=== PATIENT | male | born 1960 | race Caucasian/White ===

== ENCOUNTER 2024-08-07 10:16 | Day surgery (SDC) | payer BC ==
[~2024-08-07] VITALS: Ht 182.9 cm; Wt 134.0 kg
[2024-08-07] VITALS (11 sets, daily range): BP systolic 105–153; BP diastolic 32–101; PULSE 75–88; RESP 12–14; TEMP 98.2; O2SAT 92–99
[2024-08-07] MEDS ORDERED: FLO0.4C PO (11:12)
[2024-08-07] MEDS ORDERED: ATOR40TA72 PO (11:12)
[2024-08-07] MEDS ORDERED: CLOP75TA34 PO (11:12)
[2024-08-07] MEDS ORDERED: TRAZ-256 PO (11:12)
[2024-08-07] MEDS ORDERED: HYDR-3972 PO (11:12)
[2024-08-07] MEDS ORDERED: HYDR50TA4 PO (11:14)
[2024-08-07] MEDS ORDERED: BUSP15TA7 PO (11:14)
[2024-08-07] MEDS ORDERED: METO-384 PO (11:14)
[2024-08-07 11:16] LABS: BASOPHILS % (AUTO) 0.4 % (0-1); EOSINOPHILS # (AUTO) 0.1 X10'3 (0-0.9); LYMPHOCYTES # (AUTO) 2.5 X10'3 (1.1-4.8); MEAN CORPUSCULAR HGB CONC 34.2 g/dL (33.0-36.5); MEAN PLATELET VOLUME 7.6 FL (7.4-10.4); MONOCYTES # (AUTO) 0.6 X10'3 (0-0.9)
[2024-08-07] MEDS ORDERED: GABA300C PO (11:16)
[2024-08-07 11:17] LABS: EOSINOPHILS % (AUTO) 1.1 % (0-6); HEMATOCRIT 47.8 % (42.0-52.0); HEMOGLOBIN 16.3 g/dl (14.0-17.9); MEAN CORPUSCULAR VOLUME 90.8 FL (78-98); MONOCYTES % (AUTO) 8.1 % (2-12); NEUTROPHILS # (AUTO) 4.2 X10'3 (1.8-7.7); NEUTROPHILS % (AUTO) 56.4 % (42-75); PLATELET COUNT 157 X10'3 (140-440); RED BLOOD COUNT 5.26 X10'6 (4.70-6.10); RED CELL DISTRIBUTION WIDTH 14.9 % (11.5-14.5); WHITE BLOOD COUNT 7.5 X10'3 (4.5-11.0)
[2024-08-07 11:35] LABS: ALBUMIN 4.1 G/DL (3.4-5.0); ANION GAP 8 (8-16); BLOOD UREA NITROGEN 18 MG/DL (7-18); CALCIUM 8.8 MG/DL (8.5-10.1); CHLORIDE 102 MMOL/L (99-107); GLUCOSE 99 MG/DL (70-104); POTASSIUM 3.5 MMOL/L (3.5-5.1); PRO BRAIN NATRIURETIC PEPTIDE < 30 PG/ML (0-125); SODIUM 141 MMOL/L (135-145); TOTAL CARBON DIOXIDE 31.1 MMOL/L (24-32); eGFR 61 ML/MIN
[2024-08-07 11:36] LABS: APTT 25 SECONDS (22-32); PROTHROMBIN TIME 10.3 SECONDS (9.0-12.0)
[2024-08-07] MEDS ORDERED: nitroGLYCERIN 0.4mg SUBLingual tab SL PRN ×2 (11:45→13:35)
[2024-08-07] MEDS ORDERED: fentaNYL/PF 50MCG/1 ML 2ML syringe ONE (11:54)
[2024-08-07] MEDS ORDERED: LIDOcaine 1% 30ml preserv. free vial ONE (11:54)
[2024-08-07] MEDS ORDERED: midazolam 1 mg/ML 2ml injection ONE (11:54)
[2024-08-07] MEDS ORDERED: iohexol 350MG/ML 100ml bottle IV ONE (11:55)
[2024-08-07] MEDS ORDERED: iohexol 350 MG/ML 50ML vial IV ONE (11:55)
[2024-08-07] MEDS: diphenhydrAMINE 25mg capsule PO PRN (12:01)
[2024-08-07] MEDS: LORazepam 0.5 MG tablet PO PRN (12:01)
[2024-08-07] MEDS: normal saline 1,000 ML IV SCH (12:01)
[2024-08-07] MEDS ORDERED: HYDROmorphone 1 mg/ml syringe ONE ×2 (12:33→12:50)
[2024-08-07] MEDS ORDERED: HYDROcodone/acetaminophen 5mg/325mg tablet PO PRN (13:35)
[2024-08-07] MEDS ORDERED: ondansetron/PF 4mg/2ml inj IV PRN (13:35)
[2024-08-07] MEDS ORDERED: proCHLORperazine 10 MG/2 ml inj IV PRN (13:35)
[2024-08-07] MEDS ORDERED: normal saline 1000ml 1,000 ML IV SCH (13:35)
[2024-08-07] MEDS ORDERED: OXAZEpam 15mg capsule PO PRN (13:35)
[2024-08-07] MEDS: HYDROcodone/acetaminophen 10/325mg tab PO PRN (14:12)
[2024-08-07] MEDS: gabapentin 300mg capsule PO ONE (14:28)
[2024-08-07] MEDS: metoprolol succinate 25mg (24-HOUR) SR. Tablet PO SCH (18:36)
[2024-08-07] MEDS: clopidogrel 75mg tablet PO SCH (18:36)
== END 2024-08-07 19:10 | disposition home or self-care (01) ==
LOC: SSTAY O 10:16
PROVIDERS: ATTEND Internal Medicine Cardiovascular Disease
DX: R94.39 Abnormal result of other cardiovascular function study (principal); I25.10 Atherosclerotic heart disease of native coronary artery without angina pectoris; I45.10 Unspecified right bundle-branch block; I10 Essential (primary) hypertension; Z79.891 Long term (current) use of opiate analgesic; Z79.899 Other long term (current) drug therapy
CPT/HCPCS: 71046; 80048; 83880; 84484; 85025; 85610; 85730; 93005; 93458; 99152; J1171; J1644; J2003; J2250; J3010; J7030; Q0163; Q9967; 99153; A6258; A6449; C1760; C1769; C1894